=== PATIENT | female | born 1985 | race Caucasian/White ===

== ENCOUNTER 2016-07-26 10:54 | Emergency (ER) | payer SELFPAY ==
--- NOTE | 2016-07-26 15:08 | RAD ---
LEFT ANKLE 3 VIEWS: HISTORY: The patient stepped in a hole and rolled her ankle. FINDINGS: There is soft tissue swelling adjacent to the lateral malleolus. Some very subtle deformity to the tip of the fibula which may indicate a subtle avulsion injury. There is a moderate joint effusion s een. IMPRESSION: 1. Moderate joint effusion. 2. Soft tissue swelling adjacent to the lateral malleolus. There is some slight indistinctness to the cortex of the tip of the fibula raising the possibility of a subtle avulsion fracture. POS: KEARA
--- NOTE | 2016-07-26 15:12 | RAD ---
LEFT FOOT 3 VIEWS: HISTORY: Stepped in a hole and injured ankle and foot. FINDINGS: Ankle findings are as previously discussed with ankle joint effusion. On the AP projection, there a ctually does appear to be a bony density adjacent to the tip of the fibula better seen than on the a nkle film and is compatible with a subtle avulsion injury. No other fractures. IMPRESSION: Small avulsion fracture involving the tip of the fibula. POS: KEARA
== END 2016-07-26 11:44 | disposition home or self-care (01) ==
LOC: BURERS 10:54
DX: S93.402A Sprain of unspecified ligament of left ankle, initial encounter (principal); F17.200 Nicotine dependence, unspecified, uncomplicated; X50.1XXA Overexertion from prolonged static or awkward postures, initial encounter